=== PATIENT | female | born 1990 | race Two or more races ===

== ENCOUNTER 2017-04-06 10:31 | Emergency (ER) | payer MEDICAID ==
--- NOTE | 2017-04-06 11:45 | ER Document Report ---
ED Medical Screen (RME) - General Chief Complaint: OB Problem (<20wks) Stated Complaint: ABDOMINAL PAIN Time Seen by Provider: 04/06/17 11:42 Notes: Patient presents with low back pain. She states this feels exactly like the labor she had with her last . She denies any vaginal leakage of fluid or bleeding. She states she has had some discharge from her vagina that seems like a yeast infection. Patient states she has not seen a doctor yet for this . She says she is only seen a nurse. Patient denies any ultrasounds for this . She states that she is 17 weeks based upon the date of her last menstrual period. She says that she required steroid injections with her last for the labor. She states she does have an appointment today at 3:30 PM with [facility]. TRAVEL OUTSIDE OF THE [place] IN LAST 30 DAYS: No - Related Data Allergies/Adverse Reactions: No Known Allergies Allergy (Verified 04/06/17 11:42) Past Medical History Renal/ Medical History: Denies: Hx Peritoneal Dialysis Physical Exam - Vital signs Vitals: Temp Pulse Resp BP Pulse Ox 98.8 F 106 H 16 121/60 100 04/06/17 11:00 04/06/17 11:00 04/06/17 11:00 04/06/17 11:00 04/06/17 11:00 Course - Vital Signs Vital signs: Temp Pulse Resp BP Pulse Ox 98.8 F 106 H 16 121/60 100 04/06/17 11:00 04/06/17 11:00 04/06/17 11:00 04/06/17 11:00 04/06/17 11:00
[2017-04-06 12:13] LABS: ABSOLUTE EOSINOPHILS # (AUTO) 0.1 10^3/uL (0.0-0.6); ABSOLUTE LYMPHOCYTES (AUTO) 1.4 10^3/uL (0.5-4.7); ABSOLUTE MONOCYTES (AUTO) 0.4 10^3/uL (0.1-1.4); ABSOLUTE NEUT (AUTO) 5.9 10^3/uL (1.7-8.2); BASOPHILS % (AUTO) 0.3 % (0-2); HEMOGLOBIN 13.5 g/dL (12.0-15.5); HGB HCT DIFFERENCE 1.5; LYMPHOCYTES % (AUTO) 17.7 % (13-45); MEAN CORPUSCULAR HGB CONC 34.7 g/dL (32.0-36.0); MEAN CORPUSCULAR VOLUME 84 fl (80-97); MONOCYTES % (AUTO) 4.8 % (3-13); RED BLOOD COUNT 4.67 10^6/uL (3.72-5.28); RED CELL DISTRIBUTION WIDTH 12.8 % (11.5-14.0); SEGMENTED NEUTROPHILS % (AUTO) 76.2 % (42-78); WHITE BLOOD COUNT 7.8 10^3/uL (4.0-10.5)
[2017-04-06 12:26] LABS: APPEARANCE,URINE CLOUDY; BILIRUBIN,URINE NEGATIVE (NEGATIVE); GLUCOSE, URINE NEGATIVE (NEGATIVE); KETONES,URINE NEGATIVE (NEGATIVE); LEUKOCYTE ESTERASE,URINE LARGE (NEGATIVE); NITRITE,URINE NEGATIVE (NEGATIVE); PROTEIN,URINE NEGATIVE (NEGATIVE); URINE SPECIFIC GRAVITY 1.015
[2017-04-06 12:35] LABS: ANION GAP 13 (5-19); BLOOD UREA NITROGEN 10 mg/dL (7-20); CALCIUM 9.5 mg/dL (8.4-10.2); CARBON DIOXIDE 22 mmol/L (22-30); CHLORIDE 104 mmol/L (98-107); GLUCOSE 81 mg/dL (75-110); SODIUM 138.5 mmol/L (137-145)
--- NOTE | 2017-04-06 13:19 | RADIOLOGY REPORT (SQ) ---
EXAM DESCRIPTION: U/S OB LIMITED COMPLETED DATE/TIME: 04/06/2017 1:07 pm REASON FOR STUDY: preg/pain COMPARISON: None. TECHNIQUE: Limited transabdominal grayscale ultrasound for evaluation of specific requested obstetri fran parameters. LIMITATIONS: None. FINDINGS: HENRY: Adequate cm. FHR: 145 beats per minute. Placenta: Anterior Cervical length: 2.2 cm. Closed. Gestational age: 15 weeks 4 days OTHER: No other significant findings. IMPRESSION: LIMITED OBSTETRICAL ULTRASOUND WITH MEASURED PARAMETERS DELINEATED ABOVE. Trimester of : Third trimester - 28 weeks to delivery. TECHNICAL DOCUMENTATION: JOB ID: [id number] [employer]- All Rights Reserved
--- NOTE | 2017-04-06 14:16 | ER Document Report ---
ED General - General Chief Complaint: OB Problem (<20wks) Stated Complaint: ABDOMINAL PAIN Time Seen by Provider: 04/06/17 11:42 Mode of Arrival: Ambulatory Information source: Patient Notes: Patient presents with severe bilateral low back pain. She states that this feels like contractions that she had with her previous . She states that she was diagnosed with labor and given steroid injections. She denies any abdominal pain. No vaginal discharge or bleeding. She denies any trauma. No nausea vomiting or fevers. She states she has a appointment later this week at [facility]. The pain is moderate and constant. Patient states the pain does not radiate. Nothing makes it better or worse. It is crampy in nature. TRAVEL OUTSIDE OF THE [place] IN LAST 30 DAYS: No - Related Data Allergies/Adverse Reactions: No Known Allergies Allergy (Verified 04/06/17 11:42) Past Medical History - Social History Smoking Status: Never Smoker Frequency of alcohol use: None Drug Abuse: None Lives with: Family Family History: Reviewed & Not Pertinent Renal/ Medical History: Denies: Hx Peritoneal Dialysis Review of Systems - Review of Systems Constitutional: denies: Chills, Fever Cardiovascular: denies: Chest pain, Dyspnea Respiratory: denies: Cough, Short of breath -: Yes All other systems reviewed and negative Physical Exam - Vital signs Vitals: Temp Pulse Resp BP Pulse Ox 98.8 F 106 H 16 121/60 100 04/06/17 11:00 04/06/17 11:00 04/06/17 11:00 04/06/17 11:00 04/06/17 11:00 Interpretation: Tachycardic - General General appearance: Appears well, Alert - HEENT Head: Normocephalic, Atraumatic Eyes: Normal Pupils: PERRL - Respiratory Respiratory status: No respiratory distress Chest status: Nontender Breath sounds: Normal Chest palpation: Normal - Cardiovascular Rhythm: Regular Heart sounds: Normal auscultation Murmur: No - Abdominal Inspection: Normal Distension: No distension Bowel sounds: Normal Tenderness: Nontender Organomegaly: No organomegaly - Back Back: Normal, Nontender - Extremities General upper extremity: Normal inspection, Nontender, Normal color, Normal ROM , Normal temperature General lower extremity: Normal inspection, Nontender, Normal color, Normal ROM , Normal temperature, Normal weight bearing. No: Aleah's sign - Neurological Neuro grossly intact: Yes Cognition: Normal Orientation: AAOx4 [place] Coma Scale Eye Opening: Spontaneous [place] Coma Scale Verbal: Oriented [place] Coma Scale Motor: Obeys Commands [place] Coma Scale Total: 15 Speech: Normal Motor strength normal: LUE, RUE, LLE, RLE Sensory: Normal - Psychological Associated symptoms: Normal affect, Normal mood - Skin Skin Temperature: Warm Skin Moisture: Dry Skin Color: Normal Course - Re-evaluation Re-evalutation: 04/06/17 14:23 I called and spoke with Dr. Pickard. He recommends that the patient come to the office as soon as possible for a walk-in appointment. - Vital Signs Vital signs: Temp Pulse Resp BP Pulse Ox 98.8 F 106 H 16 121/60 100 04/06/17 11:00 04/06/17 11:00 04/06/17 11:00 04/06/17 11:00 04/06/17 11:00 - Laboratory Result Diagrams: 04/06/17 11:54 04/06/17 11:54 Laboratory results interpreted by me: 04/06/17 04/06/17 11:54 11:54 Beta HCG, Quant 651960.00 H Urine Blood SMALL H Urine Urobilinogen 4.0 H Ur Leukocyte Esterase LARGE H - Diagnostic Test Radiology reviewed: Image reviewed, Reports reviewed - Patient's ultrasound shows the cervical length to be 2.2 cm and closed. heart rate is 145. Discharge - Discharge Clinical Impression: related low back pain in second trimester, antepartum Condition: Stable Disposition: HOME, SELF-CARE Instructions: Low Back Pain ([facility]) Additional Instructions: Please go as soon as possible to [facility] for a walk-in appointment. Referrals: VANNA PICKARD MD [ACTIVE STAFF] - Follow up as needed
[2017-04-06 14:47] VITALS: BP 104/82
== END 2017-04-06 15:13 | disposition home or self-care (01) ==
LOC: ER 10:31
DX: O26.92 Pregnancy related conditions, unspecified, second trimester (principal); M54.5 Low back pain; Z3A.17 17 weeks gestation of pregnancy
CPT/HCPCS: 36415; 76815; 80048; 81001; 84702; 85025; 99284

== ENCOUNTER 2017-07-23 15:34 | Outpatient (CLI) | payer MEDICAID ==
[2017-07-23 16:50] LABS: APPEARANCE,URINE SLIGHTLY-CLOUDY; BILIRUBIN,URINE NEGATIVE (NEGATIVE); COLOR,URINE YELLOW; GLUCOSE, URINE NEGATIVE (NEGATIVE); KETONES,URINE NEGATIVE (NEGATIVE); LEUKOCYTE ESTERASE,URINE LARGE (NEGATIVE); NITRITE,URINE NEGATIVE (NEGATIVE); PROTEIN,URINE NEGATIVE (NEGATIVE); URINE SPECIFIC GRAVITY 1.005
[2017-07-23 16:58] LABS: URINE AMPHETAMINES SCREEN NEGATIVE; URINE BARBITURATES SCREEN NEGATIVE; URINE BENZODIAZEPINES SCREEN NEGATIVE; URINE COCAINE SCREEN NEGATIVE; URINE MARIJUANA (THC) SCREEN NEGATIVE; URINE METHADONE SCREEN NEGATIVE; URINE PHENCYCLIDINE SCREEN NEGATIVE
== END 2017-07-23 17:17 | disposition home or self-care (01) ==
LOC: LC 15:34
PROVIDERS: ATTEND Obstetrics & Gynecology Gynecology
PROC: 4A1HXCZ Monitoring of Products of Conception, Cardiac Rate, External Approach (ICD-10-PCS; principal; 2017-07-23)
DX: O47.03 False labor before 37 completed weeks of gestation, third trimester (principal); Z3A.30 30 weeks gestation of pregnancy
CPT/HCPCS: 59025; 80307; 81001; 87086; 87088

== ENCOUNTER 2017-08-10 10:34 | Outpatient (CLI) | payer MEDICAID ==
--- NOTE | 2017-08-10 11:12 | L&D Progress Notes ---
PROGRESS NOTES Datetime Report Generated by CPN: 08/10/2017 11:11 PROGRESS NOTE Comment: pt here for c/o of no FM since Dave and flu symptoms, Cat 1 strip, no uc's, u/a to lab, no SOB, 99.1 aux FETUS A Monitoring: External US SIGNATURE SIGNATURE: [id number] Assignment: Samira José MD Signature: with User ID: [email or web address] : with User ID: Michael
[2017-08-10 11:35] LABS: APPEARANCE,URINE CLEAR; BILIRUBIN,URINE NEGATIVE (NEGATIVE); COLOR,URINE YELLOW; GLUCOSE, URINE NEGATIVE (NEGATIVE); KETONES,URINE NEGATIVE (NEGATIVE); LEUKOCYTE ESTERASE,URINE NEGATIVE (NEGATIVE); NITRITE,URINE NEGATIVE (NEGATIVE); PROTEIN,URINE NEGATIVE (NEGATIVE); URINE SPECIFIC GRAVITY 1.004; UROBILINOGEN,URINE NEGATIVE mg/dL (<2.0)
[2017-08-10 11:58] LABS: URINE AMPHETAMINES SCREEN NEGATIVE; URINE BARBITURATES SCREEN NEGATIVE; URINE BENZODIAZEPINES SCREEN NEGATIVE; URINE COCAINE SCREEN NEGATIVE; URINE MARIJUANA (THC) SCREEN NEGATIVE; URINE METHADONE SCREEN NEGATIVE; URINE PHENCYCLIDINE SCREEN NEGATIVE
== END 2017-08-10 11:57 | disposition home or self-care (01) ==
LOC: LC 10:34
PROVIDERS: ATTEND Obstetrics & Gynecology
PROC: 4A1HXCZ Monitoring of Products of Conception, Cardiac Rate, External Approach (ICD-10-PCS; principal; 2017-08-10)
DX: O47.03 False labor before 37 completed weeks of gestation, third trimester (principal); O36.8130 Decreased fetal movements, third trimester, not applicable or unspecified; Z3A.33 33 weeks gestation of pregnancy
CPT/HCPCS: 80307; 81001

== ENCOUNTER 2017-08-25 17:32 | Outpatient (CLI) | payer MEDICAID ==
--- NOTE | 2017-08-25 17:48 | Non Stress Test Report ---
Non Stress Test Datetime Report Generated by CPN: 08/25/2017 17:48 DEMOGRAPHIC EGA NST: 33.1 INDICATION Indication for Study: Ordered by Provider VITAL SIGNS Temperature - NST: 99.1 Pulse - NST: 83 RESP - NST: 14 NBPSYS NST: 85 NBPDIA NST: 54 MONITORING Monitor Explained: Monitor Explained; Test Explained; Patient Verbalized Understanding Time on Monitor: 08/10/2017 10:55 Time off Monitor: 08/10/2017 11:39 NST Duration: 44 NST INTERVENTIONS NST Interventions: PO Hydration Physician Notified NST: J Lieberman CNM BABY A: [id number] BABY A Movement : Present Contraction Frequency : none FHR Baseline : 135 Accelerations : 15X15 Decelerations : None Variability : Moderate 6-25bpm NST Review: Meets Criteria for Reactive NST NST Review and Verified By : FER SOLIS RN NST Results: Reactive NST REPORT Report Trigger: Send Report
[2017-08-25 18:13] LABS: APPEARANCE,URINE SLIGHTLY-CLOUDY; BILIRUBIN,URINE NEGATIVE (NEGATIVE); COLOR,URINE STRAW; GLUCOSE, URINE NEGATIVE (NEGATIVE); KETONES,URINE NEGATIVE (NEGATIVE); LEUKOCYTE ESTERASE,URINE LARGE (NEGATIVE); NITRITE,URINE NEGATIVE (NEGATIVE); PROTEIN,URINE NEGATIVE (NEGATIVE); URINE SPECIFIC GRAVITY 1.003; UROBILINOGEN,URINE NEGATIVE mg/dL (<2.0)
[2017-08-25 18:31] LABS: URINE AMPHETAMINES SCREEN NEGATIVE; URINE BARBITURATES SCREEN NEGATIVE; URINE BENZODIAZEPINES SCREEN NEGATIVE; URINE COCAINE SCREEN NEGATIVE; URINE MARIJUANA (THC) SCREEN NEGATIVE; URINE METHADONE SCREEN NEGATIVE; URINE PHENCYCLIDINE SCREEN NEGATIVE
--- NOTE | 2017-08-25 19:25 | Non Stress Test Report ---
Non Stress Test Datetime Report Generated by CPN: 08/25/2017 19:25 DEMOGRAPHIC EGA NST: 35.2 INDICATION Indication for Study: Other Indication for Study (NST) Other: LC MONITORING Monitor Explained: Monitor Explained; Test Explained; Patient Verbalized Understanding Time on Monitor: 08/25/2017 18:22 Time off Monitor: 08/25/2017 19:17 NST Duration: 55 NST INTERVENTIONS NST Interventions: PO Hydration Physician Notified NST: Dr. Escalante BABY A Movement : Present Contraction Frequency : irr FHR Baseline : 130 Accelerations : 15X15 Decelerations : None Variability : Moderate 6-25bpm NST Review: Meets Criteria for Reactive NST NST Review and Verified By : MERCEDES Bee NST Results: Reactive NST REPORT Report Trigger: Send Report
== END 2017-08-25 19:26 | disposition home or self-care (01) ==
LOC: LC 17:32
PROVIDERS: ATTEND Obstetrics & Gynecology Gynecology
PROC: 4A1HXCZ Monitoring of Products of Conception, Cardiac Rate, External Approach (ICD-10-PCS; principal; 2017-08-25)
DX: O47.1 False labor at or after 37 completed weeks of gestation (principal); Z3A.35 35 weeks gestation of pregnancy
CPT/HCPCS: 59025; 80307; 81001

== ENCOUNTER 2017-09-13 18:47 | Outpatient (CLI) | payer MEDICAID ==
[2017-09-13 19:39] LABS: APPEARANCE,URINE SLIGHTLY-CLOUDY; BILIRUBIN,URINE NEGATIVE (NEGATIVE); COLOR,URINE STRAW; GLUCOSE, URINE NEGATIVE (NEGATIVE); KETONES,URINE NEGATIVE (NEGATIVE); LEUKOCYTE ESTERASE,URINE LARGE (NEGATIVE); NITRITE,URINE NEGATIVE (NEGATIVE); PROTEIN,URINE NEGATIVE (NEGATIVE); URINE SPECIFIC GRAVITY 1.008; UROBILINOGEN,URINE NEGATIVE mg/dL (<2.0)
[2017-09-13 19:44] LABS: AMNISURE (ROM) NEGATIVE (NEGATIVE)
[2017-09-13 20:00] LABS: URINE AMPHETAMINES SCREEN NEGATIVE; URINE BARBITURATES SCREEN NEGATIVE; URINE BENZODIAZEPINES SCREEN NEGATIVE; URINE COCAINE SCREEN NEGATIVE; URINE MARIJUANA (THC) SCREEN NEGATIVE; URINE METHADONE SCREEN NEGATIVE; URINE PHENCYCLIDINE SCREEN NEGATIVE
[2017-09-13] MEDS ORDERED: HYDROXYZINE PAMOATE 50 MG CAPSULE PO ONE (20:07)
[2017-09-13] MEDS ORDERED: HYDROXYZINE PAMOATE 50 MG CAPSULE ONE (20:22)
--- NOTE | 2017-09-13 20:39 | Non Stress Test Report ---
Non Stress Test Datetime Report Generated by CPN: 09/13/2017 20:39 DEMOGRAPHIC Test Number: 3 EGA NST: 38.0 INDICATION Indication for Study: Ordered by Provider Indication for Study (NST) Other: LABOR CHECK VITAL SIGNS Temperature - NST: 98.2 Pulse - NST: 64 RESP - NST: 16 NBPSYS NST: 114 NBPDIA NST: 79 URINE RESULTS Urine Protein, NST: Negative Urine Ketones - NST: Negative Urine Glucose - NST: Negative Urine Blood - NST: Negative MONITORING Monitor Explained: Monitor Explained; Test Explained; Patient Verbalized Understanding Time on Monitor: 09/13/2017 19:06 Time off Monitor: 09/13/2017 20:10 NST Duration: 64 NST INTERVENTIONS NST Interventions: PO Hydration Physician Notified NST: DR. KATHIA BABY A: [id number] BABY A Movement : Present Contraction Frequency : IRRITABLE FHR Baseline : 130 Accelerations : 15X15 Decelerations : None Variability : Moderate 6-25bpm NST Review: Meets Criteria for Reactive NST NST Review and Verified By : Edwardo Arreaga, RNC NST Results: Reactive NST REPORT Report Trigger: Send Report
== END 2017-09-13 20:27 | disposition home or self-care (01) ==
LOC: LC 18:47
PROVIDERS: ATTEND Obstetrics & Gynecology
PROC: 4A1HXCZ Monitoring of Products of Conception, Cardiac Rate, External Approach (ICD-10-PCS; principal; 2017-09-13)
DX: O47.1 False labor at or after 37 completed weeks of gestation (principal); Z3A.38 38 weeks gestation of pregnancy
CPT/HCPCS: 59025; 84112; 81005; 80307; J3490

== ENCOUNTER 2017-09-20 06:00 | Inpatient (IN) | payer MEDICAID ==
[2017-09-17 11:39] LABS: ABSOLUTE EOSINOPHILS # (AUTO) 0.1 10^3/uL (0.0-0.6); ABSOLUTE LYMPHOCYTES (AUTO) 1.5 10^3/uL (0.5-4.7); ABSOLUTE MONOCYTES (AUTO) 0.5 10^3/uL (0.1-1.4); ABSOLUTE NEUT (AUTO) 5.9 10^3/uL (1.7-8.2); BASOPHILS % (AUTO) 0.5 % (0-2); EOSINOPHILS % (AUTO) 0.6 % (0-6); HEMATOCRIT 38.1 % (36.0-47.0); HEMOGLOBIN 12.8 g/dL (12.0-15.5); LYMPHOCYTES % (AUTO) 19.1 % (13-45); MEAN CORPUSCULAR HEMOGLOBIN 27.8 pg (27.0-33.4); MEAN CORPUSCULAR HGB CONC 33.7 g/dL (32.0-36.0); MEAN CORPUSCULAR VOLUME 83 fl (80-97); MONOCYTES % (AUTO) 5.9 % (3-13); PLATELET COUNT 187 10^3/uL (150-450); RED CELL DISTRIBUTION WIDTH 14.4 % (11.5-14.0); SEGMENTED NEUTROPHILS % (AUTO) 73.9 % (42-78); TOTAL CELLS COUNTED % (AUTO) 100 %
[2017-09-17 11:47] LABS: APPEARANCE,URINE SLIGHTLY-CLOUDY; BILIRUBIN,URINE NEGATIVE (NEGATIVE); COLOR,URINE YELLOW; GLUCOSE, URINE NEGATIVE (NEGATIVE); KETONES,URINE NEGATIVE (NEGATIVE); LEUKOCYTE ESTERASE,URINE LARGE (NEGATIVE); NITRITE,URINE NEGATIVE (NEGATIVE); PROTEIN,URINE NEGATIVE (NEGATIVE); URINE SPECIFIC GRAVITY 1.013; UROBILINOGEN,URINE NEGATIVE mg/dL (<2.0)
[2017-09-17 12:06] LABS: URINE AMPHETAMINES SCREEN NEGATIVE; URINE BARBITURATES SCREEN NEGATIVE; URINE BENZODIAZEPINES SCREEN NEGATIVE; URINE COCAINE SCREEN NEGATIVE; URINE MARIJUANA (THC) SCREEN NEGATIVE; URINE METHADONE SCREEN NEGATIVE; URINE PHENCYCLIDINE SCREEN NEGATIVE
[~2017-09-20 06:00] MED LIST: AZITHROMYCIN 500 MG in DEXTROSE 5%-WATER 250 ML IV PRN; CEFAZOLIN 1 GM/D5W RTU 1 GM/50 ML RTUPB IV PRN; LACTATED RINGERS 1000 ML IV PRN; LIDOCAINE 0.5% INJ-PF (5 MG/ML) 50 ML SDV SUBCUT PRN; RINGERS SOLUTION,LACTATED 1,000 ML IV PRN
[2017-09-20] MEDS ORDERED: TETRACAINE HCL/PF 20MG/2ML AMPULE (SPINAL) ONE (06:52)
[2017-09-20] MEDS ORDERED: FENTANYL CITRATE INJ/PF 100 MCG/2 ML AMPUL ONE (07:19)
[2017-09-20] MEDS ORDERED: ONDANSETRON HCL INJ/PF 4 MG/2 ML SDV ONE ×2 (07:19→08:19)
[2017-09-20] MEDS ORDERED: MIDAZOLAM 2 MG/2 ML INJ ONE (07:19)
[2017-09-20] MEDS ORDERED: ACETAMINOPHEN 100 ML IV ONE (07:27)
[2017-09-20] MEDS ORDERED: OXYTOCIN/NORMAL SALINE 20 UNIT/1,000 ML RTUINJ ONE (08:45)
[2017-09-20] MEDS ORDERED: OXYTOCIN 10 UNIT/ML VIAL ONE (08:45)
[2017-09-20] MEDS ORDERED: MORPHINE SULFATE 10 MG/ML INJ IV PRN (09:37)
[2017-09-20] MEDS ORDERED: DIPHENHYDRAMINE HCL 50 MG/ML VIAL IV PRN (09:37)
[2017-09-20] MEDS ORDERED: OXYCODONE-ACETAMINOPHEN 5-325 MG TABLET PO PRN ×2 (09:37)
[2017-09-20] MEDS ORDERED: MEPERIDINE HCL/PF INJ 25 MG/1 ML DISP.SYRIN IV PRN (09:37)
[2017-09-20] MEDS ORDERED: FENTANYL CITRATE INJ/PF 100 MCG/2 ML AMPUL IV PRN ×3 (09:37)
[2017-09-20] MEDS ORDERED: PROMETHAZINE HCL INJ 25 MG/1 ML VIAL IV PRN ×2 (09:37)
[2017-09-20] MEDS: FENTANYL CITRATE INJ/PF 100 MCG/2 ML AMPUL ONE ×2 (10:10→10:15)
[2017-09-20] MEDS: HYDROMORPHONE HCL INJ/PF 2 MG/ML AMPULE ONE ×2 (11:20→11:30)
[2017-09-20] MEDS ORDERED: OXYTOCIN/NORMAL SALINE 20 UNIT/1,000 ML RTUINJ INJ PRN (12:38)
[2017-09-20] MEDS ORDERED: SIMETHICONE 80 MG TAB.CHEW PO PRN (13:00)
[2017-09-20] MEDS ORDERED: MEASLES,MUMPS&RUBELLA VACC/PF 0.5 ML VIAL SUBCUT PRN (13:00)
[2017-09-20] MEDS ORDERED: PROMETHAZINE HCL INJ 25 MG/1 ML VIAL IM PRN (13:00)
[2017-09-20] MEDS ORDERED: DIPH/PERTUSS(ACELL)/TETANUS VAC/PF 0.5 ML SYR (>=10YO) IM PRN (13:00)
[2017-09-20] MEDS ORDERED: HYDROMORPHONE HCL INJ/PF 2 MG/ML AMPULE IV PRN (13:00)
[2017-09-20] MEDS ORDERED: ACETAMINOPHEN 325 MG TABLET PO PRN (13:00)
[2017-09-20] MEDS ORDERED: IBUPROFEN 800 MG TABLET ONE (13:22)
[2017-09-20] MEDS: OXYCODONE-ACETAMINOPHEN 5-325 MG TABLET PO PRN ×3 (14:43→23:17)
[2017-09-20] MEDS: RINGERS SOLUTION,LACTATED 1,000 ML IV SCH ×2 (16:03→23:20)
[2017-09-20] MEDS: IBUPROFEN 800 MG TABLET PO SCH ×2 (17:13→23:17)
[2017-09-20] MEDS: DOCUSATE SODIUM 100 MG CAPSULE PO SCH (17:13)
[2017-09-21] MEDS: OXYCODONE-ACETAMINOPHEN 5-325 MG TABLET PO PRN ×4 (03:41→21:29)
[2017-09-21] MEDS: IBUPROFEN 800 MG TABLET PO SCH ×4 (05:53→23:44)
[2017-09-21 07:30] LABS: HEMATOCRIT 32.3 % (36.0-47.0); HEMOGLOBIN 10.9 g/dL (12.0-15.5); MEAN CORPUSCULAR HEMOGLOBIN 28.1 pg (27.0-33.4); MEAN CORPUSCULAR HGB CONC 33.7 g/dL (32.0-36.0); MEAN CORPUSCULAR VOLUME 83 fl (80-97); PLATELET COUNT 161 10^3/uL (150-450); RED BLOOD COUNT 3.87 10^6/uL (3.72-5.28); RED CELL DISTRIBUTION WIDTH 14.6 % (11.5-14.0); WHITE BLOOD COUNT 9.2 10^3/uL (4.0-10.5)
[2017-09-21] MEDS ORDERED: INFLUENZA ADLT QUAD (36MOS+) 2017-18 VAC 0.5 ML SYR IM PRN (10:25)
[2017-09-21] MEDS: PRENATAL VITAMIN W DHA CAPSULE PO SCH (10:29)
[2017-09-21] MEDS: DOCUSATE SODIUM 100 MG CAPSULE PO SCH ×2 (10:29→18:13)
--- NOTE | 2017-09-21 11:30 | OPERATIVE REPORT E ---
Operative Report NAME: SOWMYA ARGUELLO : 1990 AGE: 27Y DATE OF SURGERY: 09/20/2017 ROOM: 228 PREOPERATIVE DIAGNOSIS: IUP AT TERM WITH PRIOR SECTION AND DESIRE FOR STERILIZATION. POSTOPERATIVE DIAGNOSIS: IUP AT TERM WITH PRIOR SECTION AND DESIRE FOR STERILIZATION. OPERATION: Repeat low transverse , delivery of a viable female, Apgars of 8 and 9, 6 pounds 15 ounces, and bilateral tubal ligation using Filshie clips. SURGEON: Radha VELEZ M.D. ESTIMATED BLOOD LOSS: 600 mL. TISSUE REMOVED OR ALTERED: Placenta. ANESTHESIA: Spinal. PROCEDURE: The patient was placed in a supine position and rolled on the right side, prepped, draped, sterile fashion. A Pfannenstiel incision was made through an existing Pfannenstiel eschar, and incision extended through the subcutaneous tissues with sharp dissection. The rectus muscles were sharply divided. The retroperitoneum was with sharp dissection. The uterus nicked in the midline extended bilaterally. The infant was delivered through the uteroabdominal incision. Nose and mouth suctioned with a bulb syringe. Cord was clamped and the was passed from the table. Placenta was manually extracted. The uterus closed in 2 layers. The first with a running stitch of 0 Vicryl and the second Lembert stitch imbricating the first layer. Hemostasis was noted. The right fallopian tube was clipped in the proximal portion with a good purchase of tissue being noted. The procedure was repeated on the left. Both tubes were identified. applying the clips. The fascia was closed with 0 Vicryl and skin was closed with subcutaneous absorbable travon. The patient tolerated well and was taken to recovery room in good condition. Her urine remained clear throughout her procedure, and the was taken to the nursery in good condition. DICTATING PHYSICIAN: Radha VELEZ M.D. [id number] PHY#: [id number] ID: [id number] JOB#: [id number] ACCT: [id number] cc:Radha VELEZ M.D. >
--- NOTE | 2017-09-21 12:18 | PDOC PROGRESS REPORT ---
Subjective-OB Progress Note for:: 09/21/17 Subjective: tolerating diet, bleeding slowing, pain controlled with current meds. denies needs. Physical Exam (OB) Vital Signs: Temp Pulse Resp BP Pulse Ox 97.4 F 73 17 124/77 99 09/21/17 10:22 09/21/17 10:22 09/21/17 10:22 09/21/17 10:22 09/21/17 10:22 Intake & Output 09/20/17 09/21/17 09/22/17 06:59 06:59 06:59 Intake Total 4043 Output Total 2850 Balance 1193 Weight 90.71 kg - Incision: Well Approximated Closure Type: Surgical Glue - Abdomen Description: Soft Hernia Present: No Fundal Description: Firm, Midline Fundal Height: u/u - u/2 - Abdominal Inspection: Normal - Extremities Lower extremities: Aleah's sign - neg Calf: Normal, Nontender Objective-Diagnostic Laboratory: 09/21/17 07:12 09/21/17 09/21/17 07:12 07:12 WBC 9.2 RBC 3.87 Hgb 10.9 L Hct 32.3 L MCV 83 MCH 28.1 MCHC 33.7 RDW 14.6 H Plt Count 161 Blood Type AB NEGATIVE Assessment and Plan(PN) - Assessment and Plan (1) delivery delivered Is this a current diagnosis for this admission?: Yes - Time Spent with Patient Time with patient: Less than 15 minutes - Disposition Anticipated Discharge: Home Within: within 24 hours
[2017-09-22] MEDS: OXYCODONE-ACETAMINOPHEN 5-325 MG TABLET PO PRN ×2 (02:54→08:31)
[2017-09-22] MEDS: IBUPROFEN 800 MG TABLET PO SCH ×2 (05:18→12:02)
--- NOTE | 2017-09-22 09:52 | PDOC DISCHARGE SUMMARY ---
Final Diagnosis Discharge Date: 09/22/17 - Final Diagnosis (1) delivery delivered Is this a current diagnosis for this admission?: Yes Discharge Data - Discharge Medication Home Medications: Vit/Iron Fum/Folic AC [ Tablet] 1 tab PO DAILY 08/10/17 Intrapartum Procedure(s): : Low Cervical, Transverse - Diagnosis Test Laboratory: Temp Pulse Resp BP Pulse Ox 98.2 F 71 20 108/62 100 09/22/17 08:30 09/22/17 08:30 09/22/17 08:30 09/22/17 08:30 09/22/17 08:30 09/17/17 09/17/17 09/21/17 11:05 11:10 07:12 RBC 4.60 3.87 Hgb 12.8 10.9 L Hct 38.1 32.3 L Urine Opiates Screen NEGATIVE - Discharge information/Instructions Discharge Activity: Activity As Tolerated Discharge Diet: Regular Disposition: HOME, SELF-CARE Follow up with: [facility] in: 1
[2017-09-22] MEDS: DOCUSATE SODIUM 100 MG CAPSULE PO SCH (09:59)
[2017-09-22] MEDS: PRENATAL VITAMIN W DHA CAPSULE PO SCH (09:59)
[2017-09-22 13:26] VITALS: BP 124/77
== END 2017-09-22 14:12 | disposition home or self-care (01) | DRG 766 ==
LOC: 2S 06:00
PROVIDERS: ADMIT Obstetrics & Gynecology Gynecology; ATTEND Obstetrics & Gynecology Gynecology
PROC: 0UL70CZ Occlusion of Bilateral Fallopian Tubes with Extraluminal Device, Open Approach (ICD-10-PCS; 2017-09-20)
PROC: 4A1HXCZ Monitoring of Products of Conception, Cardiac Rate, External Approach (ICD-10-PCS; 2017-09-20)
PROC: 10D00Z1 Extraction of Products of Conception, Low, Open Approach (ICD-10-PCS; principal; 2017-09-20 09:00)
PROC: 3E0234Z Introduction of Serum, Toxoid and Vaccine into Muscle, Percutaneous Approach (ICD-10-PCS; 2017-09-21)
PROC: 3E0234Z Introduction of Serum, Toxoid and Vaccine into Muscle, Percutaneous Approach (ICD-10-PCS; 2017-09-21)
DX: O34.211 Maternal care for low transverse scar from previous cesarean delivery (principal); O26.893 Other specified pregnancy related conditions, third trimester; O99.02 Anemia complicating childbirth; D57.3 Sickle-cell trait; Z67.31 Type AB blood, Rh negative; O99.214 Obesity complicating childbirth; E66.9 Obesity, unspecified; Z68.36 Body mass index [BMI] 36.0-36.9, adult; Z30.2 Encounter for sterilization; Z23 Encounter for immunization; Z37.0 Single live birth
CPT/HCPCS: 1961; 36415; 59025; 80307; 81001; 85025; 85027; 85461; 86850; 86870; 86900; 86901; 90686; 94799; J0131; J0456; J1170; J2250; J2405; J2590; J2790; J3010; J3490; J7060; J7120